=== PATIENT | female | born 1995 | race Caucasian/White ===

== ENCOUNTER 2018-01-14 12:38 | Emergency (ER) | payer OTHER, SELFPAY ==
[2018-01-14 12:39] VITALS: BP 117/67; PULSE 60; RESP 16; TEMP 36.8; O2SAT 100; BMI 27.4
--- NOTE | 2018-01-14 12:54 | ED.VISSUMM ---
- ER Visit Summary Date of Service: 01/14/18 Chief Complaint: Cat Bite right index finger History of Present Illness: The patient is a 22 F past medical history of depression. Patient was bit by a domesticated cat last evening. Currently is in the custody of the [employer]. The cats been well and has not been sick. She does not need rabies vaccine. Patient is also recently been on amoxicillin for strep throat. Physical Examination: Well-appearing young female. No acute distress. Vital signs are stable. Afebrile. H EENT exam normal posterior pharynx she has large tonsils but they are not red or swollen is no exudate currently there is no throat infection. Neck nontender no lymphadenopathy. Lungs clear to auscultation bilaterally. Heart regular rhythm no murmur. Abdomen soft nontender. She is moving all 4 extremities are neurovascular intact. There is a small puncture wound bite to her right index fingertip. Currently there is no signs of infection. No swelling. No significant tenderness. No redness. No lymphangitic streaking. Neurologic exam is unremarkable. Test Results: None Emergency Department Course and Treatment: Patient will be treated prophylactically and try to prevent any type of cat bite infection of the finger should be placed on Augmentin 875 twice daily for 5 days. Treatment Plan: Watch for any signs of infection. Follow-up with ENT if she gets a recurrent sore throat because she may be a strep carrier and this may have nothing to do with her having active strep throat which she does not have at this time Disposition: Discharge Impression: Acute right index finger cat bite This note was generated with [employer] dictation software. It may contain incorrect words, spelling, and punctuation that were not noted in review of the chart prior to signing ED Disposition - Plan for ED Patient: Chief Complaint: Bite Referrals: NOT,DEFINED [Primary Care Provider] -
--- NOTE | 2018-01-14 12:58 | ED.DCSUM_ITS ---
- ER Visit Summary Date of Service: 01/14/18 Chief Complaint: Cat Bite right index finger History of Present Illness: The patient is a 22 F past medical history of depression. Patient was bit by a domesticated cat last evening. Currently is in the custody of the [email or web address]. The cats been well and has not been sick. She does not need rabies vaccine. Patient is also recently been on amoxicillin for strep throat. Physical Examination: Well-appearing young female. No acute distress. Vital signs are stable. Afebrile. H EENT exam normal posterior pharynx she has large tonsils but they are not red or swollen is no exudate currently there is no throat infection. Neck nontender no lymphadenopathy. Lungs clear to auscultation bilaterally. Heart regular rhythm no murmur. Abdomen soft nontender. She is moving all 4 extremities are neurovascular intact. There is a small puncture wound bite to her right index fingertip. Currently there is no signs of infection. No swelling. No significant tenderness. No redness. No lymphangitic streaking. Neurologic exam is unremarkable. Test Results: None Emergency Department Course and Treatment: Patient will be treated prophylactically and try to prevent any type of cat bite infection of the finger should be placed on Augmentin 875 twice daily for 5 days. Treatment Plan: Watch for any signs of infection. Follow-up with ENT if she gets a recurrent sore throat because she may be a strep carrier and this may have nothing to do with her having active strep throat which she does not have at this time Disposition: Discharge Impression: Acute right index finger cat bite This note was generated with [employer] dictation software. It may contain incorrect words, spelling, and punctuation that were not noted in review of the chart prior to signing ED Disposition - Plan for ED Patient: Chief Complaint: Bite Referrals: NOT,DEFINED [Primary Care Provider] -
--- NOTE | 2018-01-14 12:58 | ED.DEP ---
ED Disposition - Plan for ED Patient: Disposition: Home or Assisted Living Chief Complaint: Bite Instructions: ED Bite Cat Prescriptions: Amoxicillin/Potassium Clav [Augmentin 875-125 Tablet] 1 ea PO BID #10 tab Referrals: Rian Santos MD [STAFF PHYSICIAN] - As Needed Drew Lucia MD [STAFF PHYSICIAN] - As Needed Additional Instructions: Trending signs of infection in your right index finger. This would include large swelling, redness, red streaks or fever. If seen return. Augmentin 1 pill twice a day for 5 days to try to prevent a cat bite infection. If you get a recurrent sore throat follow-up locally with ENT. Currently do not have a strep throat. You may be a strep carrier.
[2018-01-14 13:00] VITALS: BP 131/73; PULSE 74; RESP 16; O2SAT 96
[2018-01-14 13:36] VITALS: BP 114/76; PULSE 62; RESP 16; O2SAT 98
== END 2018-01-14 13:37 | disposition home or self-care (01) ==
PROVIDERS: Emergency Provider Emergency Medicine
DX: S60.470A Other superficial bite of right index finger, initial encounter (principal); W55.01XA Bitten by cat, initial encounter; Y93.9 Activity, unspecified; Y92.9 Unspecified place or not applicable; F32.9 Major depressive disorder, single episode, unspecified; J02.0 Streptococcal pharyngitis; Z79.899 Other long term (current) drug therapy
CPT/HCPCS: 99282